=== PATIENT | male | born 1990 | race Caucasian/White ===

== ENCOUNTER 2018-09-21 13:20 | Emergency (ER) | payer SELFPAY ==
[~2018-09-21] VITALS: Ht 180.3 cm; Wt 79.0 kg
[2018-09-21] MEDS: KETOROLAC 30MG/ML VIAL IV STA (14:57)
[2018-09-21] MEDS: SODIUM CHLORIDE 0.9% 1,000 ML IV ONE (14:57)
[2018-09-21 15:17] LABS: BASOPHILS % 0.3 % (0.0-2.0); EOSINOPHILS % 0.9 % (0.0-5.0); HEMATOCRIT. 42.8 % (42.0-52.0); LYMPHOCYTES % 30.5 % (20.0-50.0); MEAN CORPUSCULAR HEMOGLOBIN 30.2 pg (28.0-32.0); MEAN CORPUSCULAR VOLUME 86.1 fL (80.0-94.0); MEAN PLATELET VOLUME 7.8 fl (7.4-10.4); MONOCYTES % 5.6 % (2.0-8.0); NEUTROPHILS % 62.7 % (40.0-76.0); PLATELET 250 x1000/uL (130-400); RED BLOOD CELL COUNT 4.98 mill/uL (4.7-6.1); RED CELL DISTRIBUTION WIDTH 12.2 % (11.6-14.6)
[2018-09-21 15:22] LABS: CHLORIDE 107 mEq/L (98-107)
[2018-09-21 21:47] VITALS: BP 138/84
== END 2018-09-21 22:48 | disposition home or self-care (01) ==
LOC: ER 13:20
DX: R07.9 Chest pain, unspecified (principal); F12.10 Cannabis abuse, uncomplicated; F17.200 Nicotine dependence, unspecified, uncomplicated; Z88.0 Allergy status to penicillin
CPT/HCPCS: 36415; 71045; 80053; 83880; 84484; 85025; 93005; 96374; 99284; J1885; J7030; Z7610